=== PATIENT | female | born 1945 | race Caucasian/White ===

== ENCOUNTER → 2017-12-22 | Outpatient (CLI) | payer MEDICARE, OTHER ==
[~2017-12-22] MED LIST: ACET-1600 PO; CALC-126 PO; LEVO50TA5 PO; MELO7.5T31 PO; MULT-658 PO; OXYC5CAP2 PO; TRAM50TA2 PO
[2017-12-22 15:31] LABS: BASOPHILS # (AUTO) 0.03 x10^3/uL (0-0.1); BASOPHILS % (AUTO) 1 % (0-1); EOSINOPHILS # (AUTO) 0.06 x10^3/uL (0-0.4); EOSINOPHILS % (AUTO) 1 % (1-7); LYMPHOCYTES # (AUTO) 2.13 x10^3/uL (1-3.4); LYMPHOCYTES % (AUTO) 36 % (22-44); MD NO; MEAN CORPUSCULAR HGB CONC 33.8 g/dL (32.4-35.8); MEAN CORPUSCULAR VOLUME 94.5 fL (80-100); MEAN PLATELET VOLUME 7.1 fL (7.4-10.4); MONOCYTES # (AUTO) 0.48 x10^3/uL (0.2-0.8); MONOCYTES % (AUTO) 8 % (2-9); NEUTROPHILS # (AUTO) 3.18 x10^3/uL (1.8-6.8); NEUTROPHILS % (AUTO) 54 % (42-75); PLATELET COUNT 291 x10^3/uL (130-400); RED BLOOD COUNT 4.65 x10^6/uL (3.82-5.3); RED CELL DISTRIBUTION WIDTH 13.6 % (9.6-15.2)
[2017-12-22 15:38] LABS: PROTHROMBIN TIME 10.4 Seconds (9.6-11.5)
[2017-12-22 16:11] LABS: HEMOGLOBIN A1C 5.6 % (4.2-6.3)
[2017-12-22 17:01] LABS: ANION GAP 9 mmol/L (5-15); CALCIUM 8.8 mg/dL (8.5-10.1); CHLORIDE 107 mmol/L (98-107); CREATININE 0.73 mg/dL (0.55-1.02)
[2017-12-22 17:02] LABS: ALANINE AMINOTRANSFERASE 21 U/L (12-78)
[2017-12-22 17:04] LABS: ALKALINE PHOSPHATASE 67 U/L (45-117); BILIRUBIN,TOTAL 0.6 mg/dL (0.2-1.0); TOTAL PROTEIN 7.4 g/dL (6.4-8.2)
== END | disposition home or self-care (01) ==
LOC: STAR 13:27
PROVIDERS: ATTEND Orthopaedic Surgery
DX: Z01.818 Encounter for other preprocedural examination (principal); M16.12 Unilateral primary osteoarthritis, left hip
CPT/HCPCS: 36415; 80053; 83036; 85025; 85610; 85730; 87081; 93005

== ENCOUNTER 2017-12-29 10:26 | Inpatient (IN) | payer MEDICARE, OTHER ==
[~2017-12-29] VITALS: Ht 170.2 cm; Wt 71.2 kg
[~2017-12-29 10:26] MED LIST changes: +EPINEPHRINE 1 MG/ML, 1ML ONE; +KETOROLAC 60 MG/2 ML ONE; -MELO7.5T31 PO; -OXYC5CAP2 PO; +ROPIvacaine/PF 0.5%, 20 ML ONE; +SODIUM CHLORIDE 0.9% 100 ML ONE; -TRAM50TA2 PO; +TRANEXAMIC ACID 100 MG/ML, 10ML ONE
[2017-12-29] MEDS ORDERED: LACTATED RINGERS 1,000 ML IV SCH (10:49)
[2017-12-29] MEDS ORDERED: GABAPENTIN 300 MG CAPSULE PO ONE (11:00)
[2017-12-29] MEDS ORDERED: ACETAMINOPHEN 500 MG TABLET PO ONE (11:00)
[2017-12-29 11:12] VITALS: BP 142/90
[2017-12-29] MEDS ORDERED: ACETAMINOPHEN 500 MG TABLET ONE (11:21)
[2017-12-29] MEDS ORDERED: GABAPENTIN 300 MG CAPSULE ONE (11:22)
[2017-12-29] MEDS ORDERED: MIDAZOLAM 1 MG/ML, 2ML ONE (11:29)
[2017-12-29] MEDS ORDERED: CEFAZOLIN 1,000 MG ONE ×2 (11:30)
[2017-12-29] MEDS ORDERED: LIDOCAINE-MPF 2% ,5ML ONE (11:30)
[2017-12-29] MEDS ORDERED: FENTANYL PF 100 MCG/2ML ONE ×2 (11:30→16:15)
[2017-12-29] MEDS ORDERED: PROPOFOL 10 MG/ML, 20ML ONE (11:30)
[2017-12-29] MEDS ORDERED: ONDANSETRON 2MG/ML, 2ML ONE (11:30)
[2017-12-29] MEDS ORDERED: SUCCINYLCHOLINE 20 MG/ML, 10ML ONE (14:56)
[2017-12-29] MEDS ORDERED: ROCURONIUM 10MG/ML,5ML ONE (14:56)
[2017-12-29] MEDS ORDERED: ONDANSETRON 2MG/ML, 2ML IV PRN (15:00)
[2017-12-29] MEDS ORDERED: BISACODYL 10 MG SUPP PR PRN (15:00)
[2017-12-29] MEDS ORDERED: OXYcodone IR 5MG TABLET PO PRN (15:00)
[2017-12-29] MEDS ORDERED: ONDANSETRON 4 MG TABLET PO PRN (15:00)
[2017-12-29] MEDS ORDERED: SCOPOLAMINE PATCH, 1.5MG PATCH.TD72 TD ONE (15:00)
[2017-12-29] MEDS ORDERED: ZOLPIDEM 5MG TABLET PO PRN (15:00)
[2017-12-29] MEDS ORDERED: HYDROcodone/APAP 5/325 TABLET PO PRN (15:00)
[2017-12-29] MEDS ORDERED: ACETAMINOPHEN 650 MG/20.3 ML UDC PO PRN (15:00)
[2017-12-29] MEDS ORDERED: MAGNESIUM HYDROXIDE 8%, 30ML UDC PO PRN (15:00)
[2017-12-29] MEDS ORDERED: DIPHENHYDRAMINE 50 MG CAPSULE PO PRN (15:00)
[2017-12-29] MEDS ORDERED: SENNA/DOCUSATE TABLET PO PRN (15:00)
[2017-12-29] MEDS ORDERED: hydrALAzine 20 MG/ML, 1ML IV PRN (15:30)
[2017-12-29] MEDS ORDERED: EPHEDRINE 50 MG/ML, 1ML IVPush PRN (15:30)
[2017-12-29] MEDS ORDERED: ALBUTEROL/IPRATROPIUM 2.5MG/0.5MG, 3 ML NPPB PRN (15:30)
[2017-12-29] MEDS ORDERED: MORPHINE SULFATE 4 MG/ML, 1ML IVPush PRN (15:30)
[2017-12-29] MEDS ORDERED: LORazepam 2 MG/ML, 1ML IVPush PRN (15:30)
[2017-12-29] MEDS ORDERED: METOPROLOL 1 MG/ML, 5ML IV PRN (15:30)
[2017-12-29] MEDS ORDERED: HYDROmorphone 1 MG/ML, 1ML IV PRN (15:30)
[2017-12-29] MEDS ORDERED: OXYcodone 5 MG/5 ML ORAL.SOL UDC PO PRN (15:30)
[2017-12-29] MEDS ORDERED: SCOPOLAMINE PATCH, 1.5MG PATCH.TD72 TD PRN (15:30)
[2017-12-29] MEDS ORDERED: METOCLOPRAMIDE 5 MG/ML, 2ML IV PRN (15:30)
[2017-12-29] MEDS ORDERED: DIAZEPAM 5 MG/ML, 2ML IVPush PRN (15:30)
[2017-12-29] MEDS ORDERED: LABETALOL 5MG/ML, 20ML IV PRN (15:30)
[2017-12-29] MEDS ORDERED: MEPERIDINE/PF 25MG/0.5ML IVPush PRN (15:30)
[2017-12-29] MEDS ORDERED: OXYcodone 5 MG/5 ML ORAL.SOL UDC ONE (16:15)
[2017-12-29] MEDS: FENTANYL PF 100 MCG/2ML IV PRN ×3 (16:19→16:35)
[2017-12-29] MEDS ORDERED: MEPERIDINE/PF 50 MG/ML ONE (17:11)
[2017-12-29] MEDS ORDERED: VANCOMYCIN 1,000 MG ONE (17:37)
[2017-12-29 17:55] VITALS: BP 104/49
[2017-12-29] MEDS: ASPIRIN 81 MG TABLET EC PO SCH (18:54)
[2017-12-29] MEDS: NS + 20MEQ KCL 1,000 ML IV SCH (18:54)
[2017-12-29] MEDS ORDERED: CEFAZOLIN PMX 2GM/50ML 50 ML IVPB SCH (19:00)
[2017-12-29 19:02] VITALS: BP 107/59
[2017-12-29] MEDS: DOCUSATE 100 MG CAPSULE PO SCH (22:24)
[2017-12-29] MEDS: CEFAZOLIN 2,000 MG in SODIUM CHLORIDE 0.9% 50 ML IVPB SCH (22:47)
[2017-12-29 23:13] VITALS: BP 104/54
[2017-12-30 00:01] VITALS: BP 122/70
[2017-12-30 04:19] VITALS: BP 110/65
[2017-12-30] MEDS ORDERED: DEXAMETHASONE 4 MG/ML, 1ML IVPush SCH (06:00)
[2017-12-30] MEDS: ASPIRIN 81 MG TABLET EC PO SCH ×2 (06:27→10:32)
[2017-12-30] MEDS ORDERED: LEVOTHYROXINE 100 MCG TABLET ONE (06:32)
[2017-12-30] MEDS: CEFAZOLIN 2,000 MG in SODIUM CHLORIDE 0.9% 50 ML IVPB SCH (06:34)
[2017-12-30 08:33] VITALS: BP 89/54
[2017-12-30] MEDS: DOCUSATE 100 MG CAPSULE PO SCH (08:42)
[2017-12-30] MEDS ORDERED: MULTIVITAMIN 1 TABLET PO SCH (09:00)
[2017-12-30] MEDS ORDERED: CALCIUM/VITAMIN D3 250-125 TABLET PO SCH (09:00)
[2017-12-30] MEDS ORDERED: LEVOTHYROXINE 50 MCG TABLET PO SCH (09:00)
[2017-12-30 09:15] VITALS: BP 103/66
[2017-12-30] MEDS: NS + 20MEQ KCL 1,000 ML IV SCH (10:34)
[2017-12-30] MEDS ORDERED: OXYC5CAP2 PO (11:36)
[2017-12-30] MEDS ORDERED: TRAM50TA2 PO (11:37)
[2017-12-30] MEDS ORDERED: MELO7.5T31 PO (11:37)
[2017-12-30 12:28] VITALS: BP 100/64
== END 2017-12-30 13:40 | disposition home or self-care (01) | DRG 470 ==
LOC: ORIP 10:26 → 4NOR 17:35
PROVIDERS: ADMIT Orthopaedic Surgery; ATTEND Orthopaedic Surgery
PROC: 0SRB06A Replacement of Left Hip Joint with Oxidized Zirconium on Polyethylene Synthetic Substitute, Uncemented, Open Approach (ICD-10-PCS; principal; 2017-12-29 15:00)
DX: M16.0 Bilateral primary osteoarthritis of hip (principal); Z96.642 Presence of left artificial hip joint; E03.9 Hypothyroidism, unspecified; Z90.49 Acquired absence of other specified parts of digestive tract; Z90.710 Acquired absence of both cervix and uterus
CPT/HCPCS: 36415; 72170; 76000; 85014; 85018; C1713; G0378; J0171; J0690; J1100; J1885; J2175; J2250; J2405; J2704; J2795; J3010; J3370; J3480; J3490; C1776; J0330; J7120